=== PATIENT | male | born 1945 | race Caucasian/White ===

== ENCOUNTER 2017-10-04 13:59 | Emergency (ER) | payer MEDICARE ==
[~2017-10-04] VITALS: Ht 172.7 cm; Wt 185.0 kg
[2017-10-04] MEDS ORDERED: ATOR10TA9 PO (15:00)
[2017-10-04] MEDS ORDERED: IRBE300T16 PO (15:01)
[2017-10-04] MEDS ORDERED: HYDR12.53 PO (15:01)
[2017-10-04] MEDS ORDERED: AMLO10TA2 PO (15:02)
[2017-10-04] MEDS ORDERED: APIX5TAB PO (15:02)
[2017-10-04 15:25] LABS: BASOPHILS # (AUTO) 0.03 x10^3/uL (0-0.1); BASOPHILS % (AUTO) 0 % (0-1); EOSINOPHILS # (AUTO) 0.06 x10^3/uL (0-0.4); EOSINOPHILS % (AUTO) 1 % (1-7); LYMPHOCYTES # (AUTO) 2.25 x10^3/uL (1-3.4); LYMPHOCYTES % (AUTO) 22 % (22-44); MD NO; MEAN CORPUSCULAR HEMOGLOBIN 31.9 pg (27.5-34.5); MEAN CORPUSCULAR HGB CONC 33.9 g/dL (33.2-36.2); MEAN CORPUSCULAR VOLUME 94.1 fL (81-97); MEAN PLATELET VOLUME 9.5 fL (7.4-10.4); MONOCYTES # (AUTO) 0.67 x10^3/uL (0.2-0.8); MONOCYTES % (AUTO) 7 % (2-9); NEUTROPHILS # (AUTO) 7.33 x10^3/uL (1.8-6.8); NEUTROPHILS % (AUTO) 71 % (42-75); PLATELET COUNT 230 x10^3/uL (130-400); RED BLOOD COUNT 5.24 x10^6/uL (4.38-5.82); RED CELL DISTRIBUTION WIDTH 13.5 % (9.4-14.8)
[2017-10-04 15:35] LABS: ALANINE AMINOTRANSFERASE 37 U/L (12-78); ALBUMIN 3.9 g/dL (3.4-5.0); ANION GAP 7 mmol/L (5-15); CALCIUM 9.5 mg/dL (8.5-10.1); CHLORIDE 107 mmol/L (98-107); CREATININE 1.37 mg/dL (0.7-1.3)
[2017-10-04 15:39] LABS: ALKALINE PHOSPHATASE 77 U/L (45-117); BILIRUBIN,TOTAL 1.2 mg/dL (0.2-1.0); FREE T4 (FREE THYROXINE) 1.04 ng/dL (0.76-1.46); TOTAL PROTEIN 7.9 g/dL (6.4-8.2); TROPONIN I < 0.015 ng/mL (0.000-0.045)
[2017-10-04 16:42] VITALS: BP 140/70
== END 2017-10-04 16:45 | disposition home or self-care (01) ==
LOC: ED 16:39
DX: R42 Dizziness and giddiness (principal); R53.1 Weakness; E78.00 Pure hypercholesterolemia, unspecified; I48.91 Unspecified atrial fibrillation; I10 Essential (primary) hypertension
CPT/HCPCS: 36415; 71045; 80053; 83735; 84439; 84443; 84484; 85025; 93005; 99285

== ENCOUNTER 2017-10-23 21:40 | Emergency (ER) | payer MEDICARE ==
[~2017-10-23 21:40] MED LIST: AMLO10TA2 PO; APIX5TAB PO; ATOR10TA9 PO; HYDR12.53 PO; IRBE300T16 PO
[2017-10-23] MEDS ORDERED: SODIUM CHLORIDE 0.9% 1,000ML IVBOLUS ONE (22:30)
[2017-10-23] MEDS ORDERED: DIAZEPAM 5 MG TABLET PO ONE (22:30)
[2017-10-23] MEDS ORDERED: SODIUM CHLORIDE FLUSH 10ML SYR IVF ONE (22:30)
[2017-10-23 22:49] LABS: BASOPHILS # (AUTO) 0.03 x10^3/uL (0-0.1); BASOPHILS % (AUTO) 0 % (0-1); EOSINOPHILS # (AUTO) 0.17 x10^3/uL (0-0.4); EOSINOPHILS % (AUTO) 2 % (1-7); LYMPHOCYTES # (AUTO) 2.33 x10^3/uL (1-3.4); LYMPHOCYTES % (AUTO) 27 % (22-44); MD NO; MEAN CORPUSCULAR HEMOGLOBIN 31.9 pg (27.5-34.5); MEAN CORPUSCULAR HGB CONC 33.8 g/dL (33.2-36.2); MEAN CORPUSCULAR VOLUME 94.2 fL (81-97); MEAN PLATELET VOLUME 9.8 fL (7.4-10.4); MONOCYTES # (AUTO) 0.48 x10^3/uL (0.2-0.8); MONOCYTES % (AUTO) 5 % (2-9); NEUTROPHILS # (AUTO) 5.76 x10^3/uL (1.8-6.8); NEUTROPHILS % (AUTO) 66 % (42-75); PLATELET COUNT 196 x10^3/uL (130-400); RED BLOOD COUNT 4.82 x10^6/uL (4.38-5.82); RED CELL DISTRIBUTION WIDTH 13.9 % (9.4-14.8)
[2017-10-23 23:00] LABS: ALANINE AMINOTRANSFERASE 30 U/L (12-78); ALBUMIN 3.5 g/dL (3.4-5.0); ANION GAP 6 mmol/L (5-15); CALCIUM 9.2 mg/dL (8.5-10.1); CHLORIDE 107 mmol/L (98-107); CREATININE 1.27 mg/dL (0.7-1.3); INTERNATIONAL NORMALIZED RATIO 1.05 (0.93-1.1); PROTHROMBIN TIME 10.8 Seconds (9.6-11.5)
[2017-10-23 23:04] LABS: ALKALINE PHOSPHATASE 67 U/L (45-117); BILIRUBIN,TOTAL 0.9 mg/dL (0.2-1.0); TOTAL PROTEIN 7.1 g/dL (6.4-8.2); TROPONIN I < 0.015 ng/mL (0.000-0.045)
[2017-10-24 00:43] VITALS: BP 118/76
== END 2017-10-24 00:44 | disposition home or self-care (01) ==
LOC: ED 22:28
DX: R42 Dizziness and giddiness (principal); I10 Essential (primary) hypertension; I48.91 Unspecified atrial fibrillation; E78.00 Pure hypercholesterolemia, unspecified; Z79.899 Other long term (current) drug therapy
CPT/HCPCS: 36415; 71045; 80053; 84484; 85025; 85610; 85730; 93005; 96360; 99285; J7030

== ENCOUNTER 2019-02-14 15:02 | Emergency (ER) | payer MEDICARE ==
[~2019-02-14] VITALS: Ht 172.7 cm; Wt 89.4 kg
[~2019-02-14 15:02] MED LIST changes: -AMLO10TA2 PO; +AMLO10TA8 PO; +HYDR12.517 PO; -HYDR12.53 PO
--- NOTE | 2019-02-14 15:32 | NUR ---
PT STATES HE HAS A HX OF PROSTATE CA, PT UNDERWENT CYBERKNIFE THERAPY 2 WEEKS AGO, NO HAS SWELLING AND REDNESS AND SCROTAL PAIN
[2019-02-14 15:57] VITALS: BP 117/74
--- NOTE | 2019-02-14 15:57 | NUR ---
UA COLLECTED AND SENT TO LAB, PT TO HAVE US
[2019-02-14 16:02] LABS: MICROSCOPIC NOT IND
[2019-02-14 16:16] LABS: CULTURE INDICATED? NO
--- NOTE | 2019-02-14 17:18 | NUR ---
TASK RN: Patient/Caregiver given discharge instructions and they have confirmed that they understand the instructions. Patient ambulatory with steady gait.
== END 2019-02-14 17:30 | disposition home or self-care (01) ==
LOC: ED 17:26
DX: N43.3 Hydrocele, unspecified (principal); I48.91 Unspecified atrial fibrillation; I10 Essential (primary) hypertension; Z85.46 Personal history of malignant neoplasm of prostate
CPT/HCPCS: 76870; 81003; 93975; 99284